=== PATIENT | male | born 1965 | race African-American/Black ===

== ENCOUNTER 2022-09-18 10:11 | Emergency (ER) | payer OTHER | END 2022-09-18 11:44 | disposition home or self-care (01) | LOC: NAV ERS 10:11 | DX: S76.011A Strain of muscle, fascia and tendon of right hip, initial encounter (principal); I10 Essential (primary) hypertension; F17.200 Nicotine dependence, unspecified, uncomplicated; X58.XXXA Exposure to other specified factors, initial encounter | CPT/HCPCS: 72170 ==

== ENCOUNTER 2023-03-20 14:08 | Emergency (ER) | payer OTHER, SELFPAY ==
[2023-03-20] MEDS ORDERED: Ketorolac Tromethamine 60 MG/2 ML VIAL ONE (14:45)
== END 2023-03-20 15:29 | disposition home or self-care (01) ==
LOC: NAV ERS 14:08
DX: M25.551 Pain in right hip (principal); I10 Essential (primary) hypertension; F17.200 Nicotine dependence, unspecified, uncomplicated; Z79.899 Other long term (current) drug therapy
CPT/HCPCS: 96374; J1885; J3490

== ENCOUNTER 2023-12-29 11:03 | Outpatient (CLI) | payer OTHER | END 2023-12-29 11:04 | disposition home or self-care (01) | LOC: NAV RAD 11:03 | PROVIDERS: ATTEND Nurse Practitioner Family | DX: Z01.818 Encounter for other preprocedural examination (principal) | CPT/HCPCS: 71046 ==